=== PATIENT | female | born 1970 | race African-American/Black ===

== ENCOUNTER 2016-09-02 17:02 | Emergency (ER) | payer BC, MEDICAID ==
[~2016-09-02] VITALS: Ht 170.2 cm; Wt 80.0 kg
[2016-09-02 17:08] VITALS: Ht 170.2 cm; Wt 80.0 kg
[2016-09-02] MEDS ORDERED: SOD CHLORIDE 0.9% 1,000 ML IV STA (17:18)
[2016-09-02] MEDS ORDERED: LORAZEPAM 2 MG INJ IV STA (17:18)
[2016-09-02] MEDS ORDERED: LORAZEPAM 2 MG INJ IV ONE (17:30)
[2016-09-02 17:55] LABS: ADD SCAN DIFF NO
[2016-09-02 18:00] LABS: BASOPHILS % 0.2 % (0.0-2.0); EOSINOPHILS # 0.1 10^3/ul (0.0-0.5); EOSINOPHILS % 1.1 % (0.0-7.0); HEMATOCRIT 39.2 % (37.0-47.0); HEMOGLOBIN 12.4 g/dl (12.0-16.0); LYMPHOCYTES # 1.6 10^3/ul (0.8-2.9); MEAN CORPUSCULAR HEMOGLOBIN 29.7 pg (29.0-33.0); MEAN CORPUSCULAR HGB CONC 31.6 g/dl (32.0-37.0); MEAN PLATELET VOLUME 11.3 fl (7.4-10.4); MONOCYTE # 0.6 10^3/ul (0.3-0.9); MONOCYTES % 11.2 % (0.0-11.0); NEUTROPHIL # 3.1 10^3/ul (1.6-7.5); NEUTROPHILS % 58.3 % (39.0-77.0); PLATELET COUNT 245 10^3/UL (140-415); RED BLOOD COUNT 4.17 10^6/ul (4.20-5.40); RED CELL DISTRIBUTION WIDTH 13.3 % (11.5-14.5); WHITE BLOOD COUNT 5.4 10^3/ul (4.8-10.8)
[2016-09-02 18:11] LABS: ALBUMIN 4.2 g/dl (3.3-4.9); CHLORIDE 104 mmol/L (97-110)
[2016-09-02 18:12] LABS: POTASSIUM 3.8 mmol/L (3.5-5.1); SODIUM 141 mmol/L (135-144)
[2016-09-02 18:14] LABS: ALANINE AMINOTRANSFERASE 41 IU/L (13-69); ALBUMIN/GLOBULIN RATIO 1.27; ALKALINE PHOSPHATASE 102 IU/L (42-121); ANION GAP 16 (8-16); ASPARTATE AMINO TRANSFERASE 35 IU/L (15-46); BILIRUBIN,INDIRECT 0.2 mg/dl (0-1.1); BILIRUBIN,TOTAL 0.2 mg/dl (0.2-1.3); BLOOD UREA NITROGEN 16 mg/dl (7-20); CARBON DIOXIDE 25 mmol/L (21-31); GLUCOSE 77 mg/dl (70-220); TOTAL PROTEIN 7.5 g/dl (6.1-8.1)
[2016-09-02 18:15] LABS: CALCIUM 8.8 mg/dl (8.4-10.2)
[2016-09-02 18:17] LABS: ACETAMINOPHEN < 10.0 ug/ml (10.0-30.0); ETHANOL < 10.0 mg/dl; SALICYLATE < 1.0 mg/dl (5.0-30.0)
--- NOTE | 2016-09-02 18:41 | RADRPT ---
PROCEDURE: CT Head without. CLINICAL INDICATION: Altered mental status. TECHNIQUE: The study was performed utilizing a multi-slice, multidetector CT scanner. Direct spira l 1 mm axial sections were obtained through the head without the use of intravenous contrast materia l. 1 or more of the following dose reduction techniques were utilized: Automated exposure control, adjustment of the mA and/or kV according to patient's size, iterative reconstruction technique. Co dorian and sagittal reformations were obtained. The images were reviewed on a PACS workstation. RADIATION DOSE: CTDIvol: 44.9 mGyDLP: 720.2 mGy-cm COMPARISON: No prior studies are available for comparison. FINDINGS: There is no intracranial hemorrhage, extra-axial fluid collection, mass lesion, midline shift or hyd rocephalus. The ventricles, sulci and cisterns are within normal limits. The white matter is unrem arkable. The santiago-white matter differentiation is preserved. The basal cisterns are patent. The m idline structures are intact. The orbits, calvarium and extracranial soft tissues are normal in janee earance. The visualized paranasal sinuses, mastoid air cells and middle ear cavities are normally ae rated. IMPRESSION: 1. No acute intracranial abnormality. No intracranial hemorrhage, extra-axial fluid collection, ma ss lesion or hydrocephalous. RPTAT: HGAS .Marco Antonio Alcantar MD, MD Date Time Electronically viewed and signed by .Marco Antonio Alcantar MD, MD on 09/02/2016 18:40 .S/
--- NOTE | 2016-09-02 19:38 | ERD ---
ER Documentation Chief Complaint Date/Time DATE: 09/02/16 TIME: 19:35 Chief Complaint anxiety panic attack HPI This is a 46-year-old female presents to the emergency room for evaluation of anxiety. The patient states that she has been feeling very anxious and has ran out of her Wellbutrin medication. This patient was unable to give a detailed history and started to scream and started to have visual hallucinations when she arrived by ambulance. This does severely limit a detailed history from this patient ROS All systems reviewed and are negative except as per history of present illness. PMhx/Soc History of Surgery: No Anesthesia Reaction: No Hx Neurological Disorder: Yes (seizures, tourette's, tardive dyskinesia) Hx Respiratory Disorders: No Hx Cardiac Disorders: Yes (HTN) Hx Psychiatric Problems: No (unknown) Hx Miscellaneous Medical Probl: Yes (GERD) Hx Alcohol Use: No Hx Substance Use: No Hx Tobacco Use: No Smoking Status: Former smoker Physical Exam Vitals Vital Signs Date Time Temp Pulse Resp B/P Pulse Ox O2 Delivery O2 Flow Rate FiO2 09/02/16 18:42 98.5 76 20 127/96 99 Room Air 09/02/16 18:23 76 18 133/87 99 Room Air 09/02/16 17:58 77 18 133/82 97 Room Air 09/02/16 17:08 98.2 90 18 162/80 96 Physical Exam INITIAL VITAL SIGNS: Reviewed by me GENERAL: The patient is well developed and appropriate for usual state of health in no apparent distress HEENT: Pupils equal, round, and reactive to light. EOMI. There is no scleral icterus. NECK: C-spine is soft and supple, there is no meningismus. There is no cervical lymphadenopathy. LUNGS: Clear to auscultation bilaterally. There are no rales, wheezes or rhonchi. HEART: Regular rate and rhythm, no murmurs, clicks, rubs or gallops. ABDOMEN: Soft, non-tender, non-distended. There are bowel sounds in all four quadrants. No rebound or guarding. EXTREMITIES: There is no peripheral cyanosis or edema. No focal swelling or erythema. NEUROLOGICAL: The patient moves all four extremities with 5/5 strength. Cranial nerves II - XII are intact. Normal gait. Alert and oriented SKIN: There is no apparent rash or petechiae. HEME/LYMPHATIC: There is no evidence of excessive bruising or lymphedema. PSYCHIATRIC: The patient appears extremely agitated, and is experiencing auditory hallucinations Result Diagram: 09/02/16 1740 09/02/16 174 Results 24 hrs Laboratory Tests Test 09/02/16 17:40 White Blood Count 5.410^3/ul Red Blood Count 4.1710^6/ul Hemoglobin 12.4g/dl Hematocrit 39.2% Mean Corpuscular Volume 94.0fl Mean Corpuscular Hemoglobin 29.7pg Mean Corpuscular Hemoglobin Concent 31.6g/dl Red Cell Distribution Width 13.3% Platelet Count 28065^3/UL Mean Platelet Volume 11.3fl Neutrophils % 58.3% Lymphocytes % 29.0% Monocytes % 11.2% Eosinophils % 1.1% Basophils % 0.2% Nucleated Red Blood Cells % 0.0/100WBC Neutrophils # 3.110^3/ul Lymphocytes # 1.610^3/ul Monocytes # 0.610^3/ul Eosinophils # 0.110^3/ul Basophils # 0.010^3/ul Nucleated Red Blood Cells # 0.010^3/ul Sodium Level 141mmol/L Potassium Level 3.8mmol/L Chloride Level 104mmol/L Carbon Dioxide Level 25mmol/L Anion Gap 16 Blood Urea Nitrogen 16mg/dl Creatinine 0.90mg/dl Glucose Level 77mg/dl Calcium Level 8.8mg/dl Total Bilirubin 0.2mg/dl Direct Bilirubin 0.00mg/dl Indirect Bilirubin 0.2mg/dl Aspartate Amino Transf (AST/SGOT) 35IU/L Alanine Aminotransferase (ALT/SGPT) 41IU/L Alkaline Phosphatase 102IU/L Total Protein 7.5g/dl Albumin 4.2g/dl Globulin 3.30g/dl Albumin/Globulin Ratio 1.27 Salicylates Level < 1.0mg/dl Acetaminophen Level < 10.0ug/ml Ethyl Alcohol Level < 10.0mg/dl Current Medications Medications (Trade) Dose Ordered Sig/Kym Route PRN Reason Start Time Stop Time Status Last Admin Dose Admin Lorazepam 2 mg 2 mg ONCE ONCE IV 09/02/16 17:30 09/02/16 17:31 DC Sodium Chloride (NS) 1,000 ml @ 1,000 mls/hr Q1H STAT IV 09/02/16 17:18 09/02/16 18:17 DC 09/02/16 18:23 Lorazepam (Ativan) 2 mg ONCE STAT IV 09/02/16 17:18 09/02/16 17:28 DC 09/02/16 17:29 Procedures/MDM This 46-year-old female presents to the emergency room for evaluation of anxiety. When I evaluated her she was extremely agitated and anxious. She does state that she is on Wellbutrin. At that point the patient started to scream and yell and was speaking to people who were not in the room. I did give this patient 2 mg of Ativan intravenously. Lab work was obtained which is within normal limits at this time. This patient will be evaluated by tele- psych physician when she is more arousable to determine whether or not she needs inpatient psychiatric admission versus outpatient treatment. Departure Diagnosis: Primary Impression: Anxiety attack Additional Impression: Auditory hallucinations Condition: Stable MICHAEL DURANT DO September 02, 2016 19:38
[2016-09-02] MEDS ORDERED: ACET-141 PO (20:11)
[2016-09-02] MEDS ORDERED: TOPI200C PO (20:11)
[2016-09-02] MEDS ORDERED: DULO30CA47 PO (20:12)
[2016-09-02] MEDS ORDERED: OXYC-203 PO (20:13)
[2016-09-02] MEDS ORDERED: METR500T14 PO (20:13)
[2016-09-02] MEDS ORDERED: GABA300C16 PO (20:13)
[2016-09-02] MEDS ORDERED: ZOLP5TAB7 PO (20:14)
[2016-09-02] MEDS ORDERED: PROP80CA3 PO (20:14)
[2016-09-02] MEDS ORDERED: BUPR300T36 PO (20:15)
[2016-09-02] MEDS ORDERED: ZOF8 PO (20:16)
[2016-09-02] MEDS ORDERED: PANT40TA4 PO (20:16)
[2016-09-02] MEDS ORDERED: ZOLM5TAB9 PO (20:17)
[2016-09-02] MEDS ORDERED: [UNRECOGNIZED DRUG - CODE] PO (20:19)
[2016-09-02 21:14] LABS: ADD UMIC NO; URINE BILIRUBIN (Dip) NEGATIVE (NEGATIVE); URINE BLOOD (Dip) NEGATIVE (NEGATIVE); URINE COLOR LT. YELLOW (YELLOW); URINE GLUCOSE (Dip) NEGATIVE (NEGATIVE); URINE KETONES (Dip) NEGATIVE (NEGATIVE); URINE LEUKOCYTE ESTERASE (Dip) NEGATIVE (NEGATIVE); URINE NITRITE (Dip) NEGATIVE (NEGATIVE); URINE TOTAL PROTEIN (Dip) NEGATIVE (NEGATIVE); URINE UROBILINOGEN (Dip) 0.2 E.U./dL (0.1-1.0)
[2016-09-02 21:46] LABS: BARBITURATES NEGATIVE (NEGATIVE); BENZODIAZEPINES NEGATIVE (NEGATIVE); CANNABINOIDS NEGATIVE (NEGATIVE); COCAINE NEGATIVE (NEGATIVE); OPIATES NEGATIVE (NEGATIVE)
[2016-09-02 23:00] VITALS: TEMP 98.5
[2016-09-03] MEDS ORDERED: LORA1TAB PO (01:55)
--- NOTE | 2016-09-03 01:57 | EN ---
Date/Time of Note Date/Time of Note DATE: 09/03/16 TIME: 01:55 ER Progress Note Patient is a 46-year-old female who is seen in the ER for anxiety and auditory hallucinations. She was medically cleared by Dr. Gay. She signed out to me awaiting psych evaluation. She was evaluated by tele-psychiatrist, Dr. Husain , who states that the patient can be discharged home, and recommends a prescription for as needed Ativan for anxiety. I spoke with the patient, and she states that auditory hallucinations have resolved. She denies any command hallucinations, suicidality or homicidality. She is advised to follow-up with psychiatry as an outpatient within the next week. IBAN HUNT MD September 03, 2016 01:57
--- NOTE | 2016-09-03 02:09 | PSY ---
Date/Time of Note Date/Time of Note DATE: 09/03/16 TIME: 01:55 Psychiatric Subjective Eval Consent Pt consented to telemedicine: Yes Subjective Evaluation Patient location: emergency Chief Complaint: anxiety panic attack Reason for consult: numbness of her body History of present illness patient is a 46 yo female with PPH Of depressoin and anxiety who came to the ER due to a episode of feeling "not in contol of my body like if i was possessed " she denies any hallucination but told er staff that she was hearing voices, denies feeling paranoid, no HI ,or SI , she cannot think of any recent stressors, denies feeling more depressed in the past 2 weeks , she has been on wellbutrin for the past one year with no med for anxiety , she denies any drug or alcohol abuse. she has been having problem sleeping. 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 Psychiatric Objective Eval Review of Systems: Review of Systems: Not Applicable Physical Examination: Physical Examination: Applicable Sleep: Insomnia Appetite: Decreased Energy: Decreased Interest: Decreased Mental Status Examination: Appearance: Groomed Eye Contact: Good Psychomotor Activity: Normal Behavior: Cooperative Speech: Clear AFFECT: Appropriate Mood: Anxious Though Process: Linear Thought Content: Normal Suicidal: No Homicidal: No Orientation: x3 Cognition: Alert Judgement: Intact Attention Span: Intact Laboratory Results Laboratory Tests Test 09/02/16 17:40 09/02/16 20:50 White Blood Count 5.410^3/ul Red Blood Count 4.1710^6/ul Hemoglobin 12.4g/dl Hematocrit 39.2% Mean Corpuscular Volume 94.0fl Mean Corpuscular Hemoglobin 29.7pg Mean Corpuscular Hemoglobin Concent 31.6g/dl Red Cell Distribution Width 13.3% Platelet Count 39548^3/UL Mean Platelet Volume 11.3fl Neutrophils % 58.3% Lymphocytes % 29.0% Monocytes % 11.2% Eosinophils % 1.1% Basophils % 0.2% Nucleated Red Blood Cells % 0.0/100WBC Neutrophils # 3.110^3/ul Lymphocytes # 1.610^3/ul Monocytes # 0.610^3/ul Eosinophils # 0.110^3/ul Basophils # 0.010^3/ul Nucleated Red Blood Cells # 0.010^3/ul Sodium Level 141mmol/L Potassium Level 3.8mmol/L Chloride Level 104mmol/L Carbon Dioxide Level 25mmol/L Anion Gap 16 Blood Urea Nitrogen 16mg/dl Creatinine 0.90mg/dl Glucose Level 77mg/dl Calcium Level 8.8mg/dl Total Bilirubin 0.2mg/dl Direct Bilirubin 0.00mg/dl Indirect Bilirubin 0.2mg/dl Aspartate Amino Transf (AST/SGOT) 35IU/L Alanine Aminotransferase (ALT/SGPT) 41IU/L Alkaline Phosphatase 102IU/L Total Protein 7.5g/dl Albumin 4.2g/dl Globulin 3.30g/dl Albumin/Globulin Ratio 1.27 Salicylates Level < 1.0mg/dl Acetaminophen Level < 10.0ug/ml Ethyl Alcohol Level < 10.0mg/dl Urine Color LT. YELLOW Urine Clarity CLEAR Urine pH 7.0 Urine Specific [place] <=1.005 Urine Ketones NEGATIVE Urine Nitrite NEGATIVE Urine Bilirubin NEGATIVE Urine Urobilinogen 0.2 E.U./dL Urine Leukocyte Esterase NEGATIVE Urine Hemoglobin NEGATIVE Urine Glucose NEGATIVE% Urine Total Protein NEGATIVE Urine Opiates Screen NEGATIVE Urine Barbiturates NEGATIVE Urine Amphetamines Screen NEGATIVE Urine Benzodiazepines Screen NEGATIVE Urine Cocaine Screen NEGATIVE Urine Cannabinoids NEGATIVE Assessment and Plan Assessment/Diagnosis [place] I: anxiety do nos mood do nos [place] II: deferred [place] III: as per record [place] IV: poor social support [place] V: gaf 75 Recommendation/Plan Medication Management ativan 1 mg po qd prn anxiety for 2 week s Follow-up/Disposition In my opinion,for this patient, outpatient care is the least restrictive option. Based on available evidence, this condition CAN be safely treated at a lower level of care effective today. Patient is stable without clear and convincing evidence of imminent danger due to mental illness that requires acute inpatient psychiatric care as the least restrictive alternative. please refer patient to outpatient mental health clinic for medication management and pscyhotherapy PAULINE MEDELLIN MD September 03, 2016 02:06
[2016-09-03 02:15] VITALS: BP 124/79; PULSE 65; RESP 18
== END 2016-09-03 02:18 | disposition home or self-care (01) ==
LOC: E/R 17:02
DX: F41.9 Anxiety disorder, unspecified (principal); R40.2252 Coma scale, best verbal response, oriented, at arrival to emergency department; R44.0 Auditory hallucinations; I10 Essential (primary) hypertension; R40.2142 Coma scale, eyes open, spontaneous, at arrival to emergency department; R40.2362 Coma scale, best motor response, obeys commands, at arrival to emergency department; Z87.891 Personal history of nicotine dependence
CPT/HCPCS: 36415; 70450; 80053; 80306; 80307; 81003; 85025; 96361; 96374; 99285; J2060; J7030